=== PATIENT | female | born 1990 | race Caucasian/White ===

== ENCOUNTER 2019-01-11 16:34 | Emergency (ER) | payer SELFPAY ==
[2019-01-11 16:55] VITALS: BP 125/53
--- NOTE | 2019-01-11 20:07 | UC ---
Skin Complaint HPI - HPI Summary HPI Summary: PATIENT DEVELOPED POISON PARVEEN LAST WEEK. SYMPTOMS WERE RESOLVING BUT TODAY SHE WENT WADING UP TO HER KNEES IN A NOOKSACK. THE SKIN SURROUNDING HER HEALING LESIONS IS NOW RED, HOT AND SWOLLEN. NO FEVER. - History of Current Complaint Chief Complaint: UCSkin Time Seen by Provider: 01/11/19 16:59 Stated Complaint: POISON PARVEEN, CELLULITIS Hx Obtained From: Patient Hx Last Menstrual Period: 01/04/19 Onset/Duration: Gradual Onset, Lasting Hours, Still Present Timing: Constant Onset Severity: Moderate Current Severity: Moderate Pain Intensity: 7 Pain Scale Used: 0-10 Numeric Location: Diffuse Character: Pruritus, Redness Aggravating Factor(s): Touch Alleviating Factor(s): Nothing Associated Signs & Symptoms: Positive: Rash, Tenderness - Allergy/Home Medications Allergies/Adverse Reactions: Allergies Allergy/AdvReac Type Severity Reaction Status Date / Time No Known Allergies Allergy Verified 01/11/19 16:55 Home Medications: Home Medications Levothyroxine Sodium [Synthroid] 50 mcg PO DAILY 01/11/19 [History Confirmed 06/21] Multivitamin [Multivitamins] 1 tab PO DAILY 01/11/19 [History Confirmed 01/11/19 ] PMH/Surg Hx/FS Hx/Imm Hx Endocrine History: Hypothyroidism - Surgical History Surgical History: Yes Surgery Procedure, Year, and Place: deviated septum - Family History Known Family History: Positive: Non-Contributory - Social History Alcohol Use: Occasionally Substance Use Type: None Smoking Status (MU): Never Smoked Tobacco Review of Systems All Other Systems Reviewed And Are Negative: Yes Constitutional: Positive: Negative Skin: Positive: Rash Respiratory: Positive: Negative Cardiovascular: Positive: Negative Gastrointestinal: Positive: Negative Musculoskeletal: Positive: Edema Physical Exam Triage Information Reviewed: Yes Appearance: Well-Appearing, No Pain Distress, Well-Nourished Vital Signs: Initial Vital Signs Temp 99.3 F 01/11/19 16:51 Pulse 87 01/11/19 16:51 Resp 18 01/11/19 16:51 BP 125/53 01/11/19 16:51 Pulse Ox 100 01/11/19 16:51 Vital Signs Reviewed: Yes Eyes: Positive: Conjunctiva Clear ENT: Positive: Hearing grossly normal Neck: Positive: Supple Respiratory: Positive: No respiratory distress, No accessory muscle use Cardiovascular: Positive: Pulses Normal Abdomen Description: Positive: Soft Musculoskeletal: Positive: Edema @ - LEFT ANKLE Neurological: Positive: Alert Psychological: Positive: Age Appropriate Behavior Skin: Positive: Other - SCATTERED ERYTHEMATOUS RASH OVER ARMS AND LEGS SURROUNDING AREAS OF CONTACT DERMATITIS. TENDER. NO DRAINAGE Course/Dx - Course Course Of Treatment: PATIENT WITH CONTACT DERMATITIS THAT WAS HEALING NOW SEEMS TO BE SECONDARILY INFECTED AFTER WADING IN A NOOKSACK. WILL COVER FOR INFECTION WITH KEFLEX. ADVISED OTC ANTIHISTAMINES TO COMBAT ANY RESIDUAL ALLERGIC REACTION. HAVE ALSO REFILLED TRIAMCINOLONE CREAM TO USE ON ITCHY SPOTS. FOLLOW-UP IF NEEDED. - Diagnoses Provider Diagnosis: Cellulitis Discharge - Sign-Out/Discharge Documenting (check all that apply): Patient Departure All imaging exams completed and their final reports reviewed: No Studies - Discharge Plan Condition: Stable Disposition: HOME Prescriptions: Cephalexin CAP* [Keflex 500 CAP*] 1,000 mg PO BID #28 cap Triamcinolone 0.1% CREAM(NF) [Kenalog Cream 0.1%(NF)] 1 applic TOPICAL TID PRN # 1 tube PRN Reason: Itching Patient Education Materials: Contact Dermatitis (ED), Cellulitis (ED) Referrals: No Primary Care Phys,NOPCP [Primary Care Provider] - Additional Instructions: TAKE THE ANTIBIOTICS TWICE DAILY FOR THE FULL 7 DAYS TO HELP FIGHT ANY INFECTIOUS PROCESS. I WOULD RECOMMEND TAKING A DAILY ANTIHISTAMINE SUCH ZYRTEC OR CLARITIN TO COVER FOR ANY RESIDUAL ALLERGIC COMPONENT. TRIAMCINOLONE TOPICALLY WILL HELP WITH THE ITCHY AREAS. KEEP AWAY FROM MUCOUS MEMBRANES. AVOID HEAT AND HOT WATER. KEEP COOL CLEAN AND DRY. ELEVATE YOUR LEGS WHEN SEATED. IBUPROFEN FOR DISCOMFORT. USE DAILY HYPOALLERGENIC MOISTURIZING LOTION. FOLLOW-UP WITH YOUR PCP IN [place] OR RETURN HERE IF YOU'RE NOT IMPROVING EXPECTED. GO TO THE ER WITHOUT FAIL IF YOU DEVELOP WORSENING PAIN , SWELLING, FEVER, DRAINING LESIONS OR ANY OTHER CONCERNING SYMPTOMS. IBUPROFEN MAX DOSE: 600MG (3 TABS) EVERY 6 HRS OR 800MG (4 TABS) EVERY 8 HRS OR NAPROXEN MAX DOSE: 440MG (2 TABS) EVERY 12 HRS TYLENOL MAX DOSE: 1000MG (2 EXTRA STRENGTH TABS) EVERY 8 HRS OR 650MG (2 REGULAR TABS) EVERY 6 HRS - Billing Disposition and Condition Condition: STABLE Disposition: Home
== END 2019-01-11 17:32 | disposition home or self-care (01) ==
LOC: UCEAST 16:34
DX: L03.114 Cellulitis of left upper limb (principal); L03.113 Cellulitis of right upper limb; L03.116 Cellulitis of left lower limb; L03.115 Cellulitis of right lower limb; E03.9 Hypothyroidism, unspecified
CPT/HCPCS: 99212; G0463